=== PATIENT | male | born 1960 | race Caucasian/White ===

== ENCOUNTER 2018-02-08 09:34 | Emergency (ER) | payer OTHER, SELFPAY ==
[2018-02-08 09:35] VITALS: BP 197/114; PULSE 74; RESP 16; TEMP 37.1; O2SAT 100; BMI 26.8
--- NOTE | 2018-02-08 09:50 | ED.VISSUMM ---
- ER Visit Summary Date of Service: 02/08/18 Chief Complaint: Laceration History of Present Illness: The patient is a 57 M with no primary care physician. He is right-hand dominant. Tetanus is up-to-date. Reports that he got his right middle finger caught in a feeding mechanism at work at 8:00 this morning. Is a throbbing pain is 10 at 10 worsening a 10 currently. Is worsened with movement and relieved by rest. He denies any paresthesias distally. Physical Examination: Vitals: Stable. Afebrile. General: Well-nourished and well-developed. Head: Normocephalic atraumatic. Neck: Supple, no lymphadenopathy. No JVD. Nontender. Cardiovascular: Regular rate and rhythm. No murmurs. Respiratory: No respiratory distress. Clear to auscultation bilaterally. Abdominal: Soft, nontender, nondistended, normal bowel sounds. No guarding, rebound, or peritoneal signs. Back: Nontender. Right middle finger: 3 cm laceration over the medial side of the middle phalanx. He is neurovascular intact distal this with normal sensation light touch. Normal 2 point discrimination. Less than 2 second capillary refill. Skin: Normal color, no rash. Neurologic: Alert and oriented ?3. Cranial nerves II through XII are intact. Normal strength and sensation. Psych: Normal affect. Test Results: Patient refused an x-ray Emergency Department Course and Treatment: Patient refused pain medications. He had a digital block performed. His wound was anesthetized and repaired. He tolerated it well. Treatment Plan: Patient be discharged instructions to keep the area clean and covered. Limited use of his right hand at work. Follow-up with corporate care in 10-14 days for suture removal. Return to the emergency department for any worsening symptoms. Disposition: To home in improved and stable condition. Impression: 1. Laceration right middle finger, 3 cm, repaired. Procedure note: Wound was cleansed with chlorhexidine soap. Anesthetized with 1% lidocaine without epinephrine. Copiously irrigated with normal saline. Wound was explored there is no foreign material present. It was closed with 5 simple interrupted 4-0 ethilon sutures. The patient tolerated it well. This note was generated with [employer] software. It may contain incorrect words, spelling, and punctuation that were not noted in review of the chart prior to signing ED Disposition - Plan for ED Patient: Chief Complaint: Laceration Instructions: ED Laceration Ext Sutr Stap Tape [facility] [GROUP OF PHYSICIANS] - 10-14 Days suture removal
--- NOTE | 2018-02-08 09:54 | ED.DCSUM_ITS ---
- ER Visit Summary Date of Service: 02/08/18 Chief Complaint: Laceration History of Present Illness: The patient is a 57 M with no primary care physician. He is right-hand dominant. Tetanus is up-to-date. Reports that he got his right middle finger caught in a feeding mechanism at work at 8:00 this morning. Is a throbbing pain is 10 at 10 worsening a 10 currently. Is worsened with movement and relieved by rest. He denies any paresthesias distally. Physical Examination: Vitals: Stable. Afebrile. General: Well-nourished and well-developed. Head: Normocephalic atraumatic. Neck: Supple, no lymphadenopathy. No JVD. Nontender. Cardiovascular: Regular rate and rhythm. No murmurs. Respiratory: No respiratory distress. Clear to auscultation bilaterally. Abdominal: Soft, nontender, nondistended, normal bowel sounds. No guarding, rebound, or peritoneal signs. Back: Nontender. Right middle finger: 3 cm laceration over the medial side of the middle phalanx. He is neurovascular intact distal this with normal sensation light touch. Normal 2 point discrimination. Less than 2 second capillary refill. Skin: Normal color, no rash. Neurologic: Alert and oriented ?3. Cranial nerves II through XII are intact. Normal strength and sensation. Psych: Normal affect. Test Results: Patient refused an x-ray Emergency Department Course and Treatment: Patient refused pain medications. He had a digital block performed. His wound was anesthetized and repaired. He tolerated it well. Treatment Plan: Patient be discharged instructions to keep the area clean and covered. Limited use of his right hand at work. Follow-up with corporate care in 10-14 days for suture removal. Return to the emergency department for any worsening symptoms. Disposition: To home in improved and stable condition. Impression: 1. Laceration right middle finger, 3 cm, repaired. Procedure note: Wound was cleansed with chlorhexidine soap. Anesthetized with 1% lidocaine without epinephrine. Copiously irrigated with normal saline. Wound was explored there is no foreign material present. It was closed with 5 simple interrupted 4- 0 ethilon sutures. The patient tolerated it well. This note was generated with [employer] software. It may contain incorrect words, spelling, and punctuation that were not noted in review of the chart prior to signing ED Disposition - Plan for ED Patient: Chief Complaint: Laceration Instructions: ED Laceration Ext Sutr Stap Tape [facility] [GROUP OF PHYSICIANS] - 10-14 Days suture removal
[2018-02-08] MEDS: Bupivacaine Mpf 0.5% 30 ML VIAL INFILT (10:31)
[2018-02-08 10:47] VITALS: RESP 14
== END 2018-02-08 10:48 | disposition home or self-care (01) ==
PROVIDERS: Emergency Provider Emergency Medicine
DX: S61.212A Laceration without foreign body of right middle finger without damage to nail, initial encounter (principal); W23.0XXA Caught, crushed, jammed, or pinched between moving objects, initial encounter; Y93.9 Activity, unspecified; Y92.9 Unspecified place or not applicable; F17.200 Nicotine dependence, unspecified, uncomplicated
CPT/HCPCS: 12002; 99283

== ENCOUNTER 2018-02-27 07:17 | Emergency (ER) | payer OTHER, SELFPAY ==
[2018-02-27 07:18] VITALS: PULSE 80; RESP 18; TEMP 36.6; O2SAT 99; BMI 26.4
[2018-02-27 07:29] VITALS: BP 213/118
--- NOTE | 2018-02-27 07:38 | RAD_ITS ---
STUDY: X-RAY - RIGHT HAND REASON FOR EXAM: Male, 57 years old. Soft tissue wound overlying the right third digit. Recent injury. TECHNIQUE: 3 view(s) of the hand. COMPARISON: None. FINDINGS: Normal radiocarpal articulation. Normal distal radioulnar joint. Normal visualized carpal bones. Normal carpal articulations Normal carpometacarpal articulation of the thumb. Normal second through fifth carpometacarpal joints. Findings suggestive of a healed boxer fracture of the fifth metacarpal. Normal metacarpophalangeal joint of the thumb. Normal interphalangeal joint of the thumb. Normal proximal and distal phalanges of the thumb. Normal metacarpophalangeal joints of the second through fifth fingers. Normal proximal and distal interphalangeal joints of the second through fifth fingers. Normal phalanges of the second through fifth fingers. Diffuse soft tissue swelling of the third digit. No radiopaque foreign body is seen. RAD/Hand Min 3 Views IMPRESSION: Diffuse soft tissue swelling of the third digit. Electronically Signed: Felix Gibbs MD at 8:35 EDT Tel [phone], Service support ,
[2018-02-27 08:22] VITALS: BP 206/107
[2018-02-27 08:31] LABS: Erythrocyte Sedimentation Rate < 1 mm/hr (0-20)
[2018-02-27 08:32] LABS: Absolute Lymphocyte Count 2.01 X10^3/ul (0.83-4.51); Absolute Neutrophil Count 5.1 X10^3/uL (2.0-7.7); Basophil# 0.17 X10^3/uL; Basophil% 2.1 % (0-1); Eosinophil# 0.21 X10^3/uL; Eosinophils% 2.6 % (0-5); Hemoglobin 15.3 g/dl (13.0-16.5); Lymphocyte # 2.01 X10^3/ul (4.0); Lymphocyte % 25.2 % (19-41); Mean Corpuscular Hgb 31.5 pg (27.0-32.0); Mean Corpuscular Volume 92.6 fL (80-94); Mean Platelet Vol. 8.9 fl (6.2-12.0); Monocyte# 0.51 X10^3/uL; Monocyte% 6.4 % (0-10); Neutrophil # 5.06 X10^3/uL (2.7-7.7); Neutrophil % 63.6 % (47-70); Platelet Count 232 K/mm3 (150-450); RBC Distribution Width CV 13.7 % (11.6-14.6); RBC Distribution Width SD 46.3 fl (35.1-43.9); Red Blood Count 4.86 M/mm3 (4.6-6.2)
[2018-02-27 08:33] LABS: POSITIVE COUNT NO; POSITIVE DIFFERENTIAL NO; POSITIVE MORPHOLOGY NO
[2018-02-27 08:50] LABS: Anion Gap 11 (5-15); BUN 10 mg/dL (7-18); BUN/Creat Ratio 11.5 RATIO (10-20); CRP < 2.90 mg/L (0.0-3.0); Calcium,Total 8.9 mg/dL (8.5-10.1); Chloride 99 mmol/L (98-107); Creatinine, Serum 0.87 mg/dL (0.70-1.30); EST Glomerular Filtration Rate 97 mL/min (>60); Est Glom Filt Rate - Afr Amer 118 mL/min (>60); Glucose 118 mg/dL (74-106); Potassium 4.7 mmol/L (3.5-5.1); Sodium Level 138 mmol/L (136-145)
--- NOTE | 2018-02-27 08:59 | ED.VISSUMM ---
- ER Visit Summary Date of Service: 02/27/18 Chief Complaint: Swelling of the right long finger. History of Present Illness: The patient is a 57 M who presents with swelling and wound of the right long finger. He initially had a laceration on February 08 due to a work injury. He was seen in the emergency department and had his laceration repaired. He followed up with [employer] for suture removal. He has been doing gauze dressings and bandages. He notes that he has a history of latex tape allergy. He did get dressings that were supposed to be latex free. He states over the last week he developed a rash and itching on the long finger and since that time the wound has worsened and he is also begun to have some drainage. No fevers nausea vomiting or other systemic symptoms. Physical Examination: Hypertensive initial blood pressure 213/118 slightly improved on reevaluation vitals otherwise normal Heart regular rate and rhythm Lungs are clear Abdomen soft There is erythema and diffuse soft tissue swelling of the right long finger with some ulceration along the ulnar side of the right long finger and a small ulcerative wound over the medial right fourth finger near the PIP he does have normal flexion and extension there is some superficial sloughing and purulence over the ulnar side of the right long finger he has brisk capillary refill normal sensation distally there are also a few vesicular lesions over the back of the right long finger and a couple of spots on the hand Test Results: Hand x-ray shows diffuse soft tissue swelling of the third digit. CBC BMP ESR and CRP are normal. Emergency Department Course and Treatment: I believe the patient's symptoms likely began related to a contact dermatitis from the dressings. I believe he has developed a secondary bacterial infection and cellulitis related to this. Given normal x-ray normal labs I do not currently see evidence to support osteomyelitis. I discussed hospitalization for further IV antibiotics and wound care. The patient refused. We had a discussion of risks and benefits of hospitalization versus outpatient follow-up. He understands these risks wishes to follow-up as an outpatient. We will place on Keflex and Bactrim. He was referred to wound care. He was also advised of his severely elevated blood pressure. At this time he does not have symptoms of any endorgan dysfunction such as headache chest pain or difficulty breathing. He was given a referral for a primary care physician for follow-up on this as well. He understands to return for any new or worsening symptoms was instructed on specific signs and symptoms to monitor for. Treatment Plan: [] Disposition: Discharge Impression: Contact dermatitis right hand Cellulitis right hand Elevated blood pressure This note was generated with [employer] dictation software. It may contain incorrect words, spelling, and punctuation that were not noted in review of the chart prior to signing ED Disposition - Plan for ED Patient: Chief Complaint: Wound Check Referrals: Care Physician,No Primary [Primary Care Provider] -
--- NOTE | 2018-02-27 09:06 | DCINST.ED_ITS ---
ED Disposition - Plan for ED Patient: Chief Complaint: Wound Check Instructions: ED Infec Skin Cellulitis, ED Hypertension Poss Prescriptions: Cephalexin [Keflex] 500 mg PO Q6 #40 cap Smz/Tmp Ds [Bactrim Ds] 1 tab PO BID #14 tab Referrals: Care Physician,No Primary [Primary Care Provider] - Clinic,Wound [None] - Vanessa Du MD [STAFF PHYSICIAN] - Additional Instructions: Blood pressure was very high today. Follow-up in the office in regards to this. Also schedule appointment with wound care for your hand. If you develop any new or worsening symptoms he should return to the emergency department for r eevaluation.
[2018-02-27 09:47] VITALS: BP 207/103; PULSE 70; RESP 16; O2SAT 98
== END 2018-02-27 09:50 | disposition home or self-care (01) ==
PROVIDERS: Emergency Provider Emergency Medicine
DX: L25.9 Unspecified contact dermatitis, unspecified cause (principal); L03.113 Cellulitis of right upper limb; R03.0 Elevated blood-pressure reading, without diagnosis of hypertension; L98.499 Non-pressure chronic ulcer of skin of other sites with unspecified severity; Z72.0 Tobacco use
CPT/HCPCS: 73130; 80048; 85025; 85652; 86140; 96365; 99283; A4216; J0295